=== PATIENT | male | born 1975 | race Caucasian/White ===

== ENCOUNTER 2023-04-09 06:18 | Emergency (ER) | payer MEDICAID ==
[~2023-04-09] VITALS: Ht 175.3 cm; Wt 68.0 kg
[2023-04-09 06:27] VITALS: BP 149/84; PULSE 84; RESP 18; TEMP 97.8; O2SAT 97
== END 2023-04-09 07:53 | disposition home or self-care (01) ==
LOC: ER 06:18
DX: S90.822A Blister (nonthermal), left foot, initial encounter (principal); S90.821A Blister (nonthermal), right foot, initial encounter; H40.9 Unspecified glaucoma; X58.XXXA Exposure to other specified factors, initial encounter; Y93.89 Activity, other specified; Y92.89 Other specified places as the place of occurrence of the external cause; Y99.8 Other external cause status
CPT/HCPCS: 99283